=== PATIENT | female | born 1980 ===

== ENCOUNTER 2019-01-09 10:02 | Emergency (ER) | payer OTHER ==
--- NOTE | 2019-01-09 13:06 | Emergency Department Report ---
HPI - General Chief Complaint: Vaginal Bleeding Time Seen by Provider: 01/09/19 13:04 - HPI HPI: lmp 07/19/18 pos home preg test comes to er with vag bleeding and abd pain here with other children and her . ED Past Medical Hx - Past Medical History Previous Medical History?: No - Family History Family history: no significant - Social History Smoking Status: Never Smoker Substance Use Type: None - Medications Home Medications: Home Medications Medication Instructions Recorded Confirmed Last Taken Type Acetaminophen [Non-Aspirin Extra 1 - 2 tab PO Q8H PRN #30 tablet 01/09/19 Unknown Rx Strength] ED Review of Systems ROS: Stated complaint: 11 WEEKS /BLEEDING Other details as noted in HPI Comment: All other systems reviewed and negative Physical Exam - Physical Exam Vital Signs: Vital Signs 01/09/19 10:41 Temperature 98.4 F Pulse Rate 105 H Respiratory 18 Rate Blood Pressure 141/85 O2 Sat by Pulse 100 Oximetry Physical Exam: alert ambulatory s1s2 lungs cta obese no cva tenderness ED Course Vital Signs 01/09/19 10:41 Temperature 98.4 F Pulse Rate 105 H Respiratory 18 Rate Blood Pressure 141/85 O2 Sat by Pulse 100 Oximetry ED Medical Decision Making - Lab Data Result diagrams: 01/09/19 13:11 01/09/19 13:11 - Radiology Data Radiology results: report reviewed, image reviewed - Medical Decision Making Vital Signs 01/09/19 01/09/19 10:41 16:31 Temperature 98.4 F 97.6 F Pulse Rate 105 H 76 Respiratory 18 22 Rate Blood Pressure 141/85 Blood Pressure 120/71 [Right] O2 Sat by Pulse 100 99 Oximetry Lab Results 01/09/19 01/09/19 01/09/19 Range/Units 13:11 13:11 13:11 WBC 10.5 (4.5-11.0) K/mm3 RBC 3.97 (3.65-5.03) M/mm3 Hgb 12.3 (10.1-14.3) gm/dl Hct 35.6 (30.3-42.9) % MCV 90 (79-97) fl MCH 31 (28-32) pg MCHC 35 H (30-34) % RDW 13.3 (13.2-15.2) % Plt Count 298 (140-440) K/mm3 Lymph % (Auto) Not Reportable [place] % (Auto) Not Reportable Eos % (Auto) Not Reportable Baso % (Auto) Not Reportable Lymph # Not Reportable [place] # Not Reportable Eos # Not Reportable Baso # Not Reportable Add Manual Diff Complete Total Counted 100 Seg Neuts % (Manual) 77.0 H (40.0-70.0) % Band Neutrophils % 0 % Lymphocytes % (Manual) 19.0 (13.4-35.0) % Reactive Lymphs % (Man) 0 % Monocytes % (Manual) 4.0 (0.0-7.3) % Eosinophils % (Manual) 0 (0.0-4.3) % Basophils % (Manual) 0 (0.0-1.8) % Metamyelocytes % 0 % Myelocytes % 0 % Promyelocytes % 0 % Blast Cells % 0 % Nucleated RBC % Not Reportable Seg Neutrophils # Not Reportable Seg Neutrophils # Man 8.1 H (1.8-7.7) K/mm3 Band Neutrophils # 0.0 K/mm3 Lymphocytes # (Manual) 2.0 (1.2-5.4) K/mm3 Abs React Lymphs (Man) 0.0 K/mm3 Monocytes # (Manual) 0.4 (0.0-0.8) K/mm3 Eosinophils # (Manual) 0.0 (0.0-0.4) K/mm3 Basophils # (Manual) 0.0 (0.0-0.1) K/mm3 Metamyelocytes # 0.0 K/mm3 Myelocytes # 0.0 K/mm3 Promyelocytes # 0.0 K/mm3 Blast Cells # 0.0 K/mm3 WBC Morphology Not Reportable Hypersegmented Neuts Not Reportable Hyposegmented Neuts Not Reportable Hypogranular Neuts Not Reportable Smudge Cells Not Reportable Toxic Granulation Not Reportable Toxic Vacuolation Not Reportable Dohle Bodies Not Reportable Pelger-Huet Anomaly Not Reportable Sakshi Rods Not Reportable Platelet Estimate Consistent w auto Clumped Platelets Not Reportable Plt Clumps, EDTA Not Reportable Large Platelets Not Reportable Giant Platelets Not Reportable Platelet Satelliting Not Reportable Plt Morphology Comment Not Reportable RBC Morphology Not Reportable Dimorphic RBCs Not Reportable Polychromasia Not Reportable Hypochromasia Not Reportable Poikilocytosis Not Reportable Anisocytosis 1+ Microcytosis Not Reportable Macrocytosis Not Reportable Spherocytes Not Reportable Pappenheimer Bodies Not Reportable Sickle Cells Not Reportable Target Cells Not Reportable Tear Drop Cells Not Reportable Ovalocytes Not Reportable Helmet Cells Not Reportable [place] Bodies Not Reportable [place] Rings Not Reportable Sagrario Cells Not Reportable Bite Cells Not Reportable Crenated Cell Not Reportable Elliptocytes Not Reportable Acanthocytes (Spur) Not Reportable Rouleaux Not Reportable Hemoglobin C Crystals Not Reportable Schistocytes Not Reportable Malaria parasites Not Reportable Frandy Bodies Not Reportable Hem Pathologist Commnt No Sodium 140 (137-145) mmol/L Potassium 3.9 (3.6-5.0) mmol/L Chloride 100.9 (98-107) mmol/L Carbon Dioxide 25 (22-30) mmol/L Anion Gap 18 mmol/L BUN 7 (7-17) mg/dL Creatinine 0.4 L (0.7-1.2) mg/dL Estimated GFR > 60 ml/min BUN/Creatinine Ratio 18 % Glucose 142 H (65-100) mg/dL Calcium 9.6 (8.4-10.2) mg/dL HCG, Quant 1162 H (0-4) mIU/mL Blood Type Ord Rhogam Gestat Weeks WEEKS 01/09/19 Range/Units 13:11 WBC (4.5-11.0) K/mm3 RBC (3.65-5.03) M/mm3 Hgb (10.1-14.3) gm/dl Hct (30.3-42.9) % MCV (79-97) fl MCH (28-32) pg MCHC (30-34) % RDW (13.2-15.2) % Plt Count (140-440) K/mm3 Lymph % (Auto) [place] % (Auto) Eos % (Auto) Baso % (Auto) Lymph # [place] # Eos # Baso # Add Manual Diff Total Counted Seg Neuts % (Manual) (40.0-70.0) % Band Neutrophils % % Lymphocytes % (Manual) (13.4-35.0) % Reactive Lymphs % (Man) % Monocytes % (Manual) (0.0-7.3) % Eosinophils % (Manual) (0.0-4.3) % Basophils % (Manual) (0.0-1.8) % Metamyelocytes % % Myelocytes % % Promyelocytes % % Blast Cells % % Nucleated RBC % Seg Neutrophils # Seg Neutrophils # Man (1.8-7.7) K/mm3 Band Neutrophils # K/mm3 Lymphocytes # (Manual) (1.2-5.4) K/mm3 Abs React Lymphs (Man) K/mm3 Monocytes # (Manual) (0.0-0.8) K/mm3 Eosinophils # (Manual) (0.0-0.4) K/mm3 Basophils # (Manual) (0.0-0.1) K/mm3 Metamyelocytes # K/mm3 Myelocytes # K/mm3 Promyelocytes # K/mm3 Blast Cells # K/mm3 WBC Morphology Hypersegmented Neuts Hyposegmented Neuts Hypogranular Neuts Smudge Cells Toxic Granulation Toxic Vacuolation Dohle Bodies Pelger-Huet Anomaly Sakshi Rods Platelet Estimate Clumped Platelets Plt Clumps, EDTA Large Platelets Giant Platelets Platelet Satelliting Plt Morphology Comment RBC Morphology Dimorphic RBCs Polychromasia Hypochromasia Poikilocytosis Anisocytosis Microcytosis Macrocytosis Spherocytes Pappenheimer Bodies Sickle Cells Target Cells Tear Drop Cells Ovalocytes Helmet Cells [place] Bodies [place] Rings Sagrario Cells Bite Cells Crenated Cell Elliptocytes Acanthocytes (Spur) Rouleaux Hemoglobin C Crystals Schistocytes Malaria parasites Frandy Bodies Hem Pathologist Commnt Sodium (137-145) mmol/L Potassium (3.6-5.0) mmol/L Chloride (98-107) mmol/L Carbon Dioxide (22-30) mmol/L Anion Gap mmol/L BUN (7-17) mg/dL Creatinine (0.7-1.2) mg/dL Estimated GFR ml/min BUN/Creatinine Ratio % Glucose (65-100) mg/dL Calcium (8.4-10.2) mg/dL HCG, Quant (0-4) mIU/mL Blood Type O POSITIVE Ord Rhogam Gestat Weeks Rh pos WEEKS medicated with tylenol for pain labs noted rh pos us noted pt and updated on labs/us. She needs follow up imaging and labs at OBGYN office in 48 hours. Coach Driver has been used to convey discharge plan of care. Pt has been informed she may pass clots/tissue. - Differential Diagnosis ro ab Critical care attestation.: If time is entered above; I have spent that time in minutes in the direct care of this critically ill patient, excluding procedure time. ED Disposition Clinical Impression: , Threatened Disposition: DC-01 TO HOME OR SELFCARE Is pt being admited?: No Does the pt Need Aspirin: No Condition: Stable Instructions: Threatened Miscarriage (ED) Additional Instructions: diet as tolerated pelvic rest tylenol only for pain follow up with your obgyn or the one we gave you in 48 hours. see attached Prescriptions: Acetaminophen [Non-Aspirin Extra Strength] 1 - 2 tab PO Q8H PRN #30 tablet PRN Reason: Pain, Moderate (4-6) Referrals: HUMERA CASTRO MD [Staff Physician] - 3-5 Days Time of Disposition: 18:23 Print Language: ESTONIAN
[2019-01-09 13:35] LABS: Hematocrit 35.6 % (30.3-42.9); Hemoglobin 12.3 gm/dl (10.1-14.3); Mean Corpuscular HGB Conc 35 % (30-34); Mean Corpuscular Volume 90 fl (79-97); Platelet Count 298 K/mm3 (140-440); Red Blood Count 3.97 M/mm3 (3.65-5.03); Red Cell Distribution Width 13.3 % (13.2-15.2)
[2019-01-09 14:48] LABS: BUN/Creatinine Ratio 18; Blood Urea Nitrogen 7 mg/dL (7-17); Calcium 9.6 mg/dL (8.4-10.2); Hemolysis Index 0
[2019-01-09] MEDS ORDERED: TYLENOL PO ONE (15:45)
[2019-01-09 16:27] LABS: Basophils % (Manual) 0 % (0.0-1.8); Eosinophils % (Manual) 0 % (0.0-4.3); Total Cells Counted 100
[2019-01-09 16:28] LABS: Anisocytosis 1+; Platelet Estimate Consistent w Auto
[2019-01-09 16:32] VITALS: BP 120/71
--- NOTE | 2019-01-09 18:56 | Ultrasound Report ---
OB ultrasound. 01/09/2019. HISTORY: . Bleeding. FINDINGS: OB ultrasound was performed transabdominally and endovaginally. The uterus measures 9.7 x 5 .9 x 7.2 cm. The endometrial stripe measures 16.6 cm. A gestational sac is present dated 13 weeks 3 d ays. There is soft tissue within the sac presumably representing a pole. No heart tones a re documented. Right ovary measures 2.2 x 1.3 x 1.6 cm. Left ovary measures 3.4 x 2.1 x 3.1 cm. A complex cyst at th e left ovary measures 2.6 cm. IMPRESSION: 1. Gestational sac containing soft tissue presumably representing a pole. No heart tones can be documented. 2. Mild complex cyst left ovary. Signer Name: Tyler Fontenot MD Signed: 01/09/2019 6:52 PM Workstation Name: [id number]
== END 2019-01-09 19:00 | disposition home or self-care (01) ==
LOC: ED 10:02
DX: O20.0 Threatened abortion (principal); Z3A.11 11 weeks gestation of pregnancy
CPT/HCPCS: 36415; 76801; 76817; 80048; 84702; 85007; 85025; 86900; 86901

== ENCOUNTER 2019-01-10 08:59 | Emergency (ER) | payer SELFPAY ==
[2019-01-10 09:34] LABS: Basophils % (Auto) 0.3 % (0.0-1.8); Eosinophils # (Auto) 0.1 K/mm3 (0.0-0.4); Eosinophils % (Auto) 0.5 % (0.0-4.3); Hematocrit 29.7 % (30.3-42.9); Hemoglobin 10.8 gm/dl (10.1-14.3); Lymphocytes # (Auto) 2.7 K/mm3 (1.2-5.4); Lymphocytes % (Auto) 20.4 % (13.4-35.0); Mean Corpuscular HGB Conc 36 % (30-34); Mean Corpuscular Volume 89 fl (79-97); Monocytes # (Auto) 0.6 K/mm3 (0.0-0.8); Monocytes % (Auto) 4.7 % (0.0-7.3); Platelet Count 298 K/mm3 (140-440); Red Blood Count 3.35 M/mm3 (3.65-5.03)
[2019-01-10] MEDS ORDERED: ZOFRAN IV ONE (09:34)
[2019-01-10] MEDS ORDERED: MORPHINE IV ONE ×2 (09:34→11:03)
[2019-01-10] MEDS ORDERED: NACL 0.9% 1000 ML 1,000 ML IV ONE (09:35)
--- NOTE | 2019-01-10 09:39 | Emergency Department Report ---
ED Female HPI - General Chief complaint: Vaginal Bleeding Stated complaint: ABD PAIN/VAG BLEEDING Time Seen by Provider: 01/10/19 09:22 Source: family, EMS, branch operations specialist, old records reviewed Mode of arrival: Stretcher Limitations: Language Barrier - History of Present Illness Initial comments: 38-year-old female with a past medical history of diabetes, hypertension, and previous pregnancies visits to the hospital currently complaining of s uprapubic cramping and vaginal bleeding. LMP is unclear the patient estimates she is 11 to 15 weeks . She was seen here yesterday for same complaint. She had a hemoglobin of 12, blood type O+, and a beta Quant of 1162. Transvaginal ultrasound showed a gestational sac containing soft tissue presumably representing a pole without heart tones. Mild complex cyst in the left ovary. Patient states since being discharged bleeding has worsened. She is using a cloth to absorb vaginal bleeding and estimates greater than 1 pad per hour. She is also having 10/10 intermittent suprapubic cramping pain worse with palpation. This is the pt's fifth . She has 2 living children. She has a history of 1 early miscarriage, and upon delivery at 9 months gestation. 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 [facility] - Related Data Previous Rx's Medication Instructions Recorded Last Taken Type Acetaminophen [Non-Aspirin Extra 1 - 2 tab PO Q8H PRN #30 tablet 01/09/19 Unknown Rx Strength] Ibuprofen [Motrin] 800 mg PO Q8HR PRN #30 tablet 01/10/19 Unknown Rx Ondansetron [Zofran Odt] 4 mg PO Q8HR PRN #14 tab.rapdis 01/10/19 Unknown Rx oxyCODONE /ACETAMINOPHEN [Percocet 1 tab PO Q6HR PRN #15 tablet 01/10/19 Unknown Rx 5/325] Allergies Allergy/AdvReac Type Severity Reaction Status Date / Time No Known Allergies Allergy Unverified 01/09/19 16:36 ED Review of Systems ROS: Stated complaint: ABD PAIN/VAG BLEEDING Other details as noted in HPI Comment: All other systems reviewed and negative ED Past Medical Hx - Past Medical History Previous Medical History?: Yes Hx Hypertension: Yes Hx Diabetes: Yes - Surgical History Past Surgical History?: No - Social History Smoking Status: Never Smoker Substance Use Type: None - Medications Home Medications: Home Medications Medication Instructions Recorded Confirmed Last Taken Type Acetaminophen [Non-Aspirin Extra 1 - 2 tab PO Q8H PRN #30 tablet 01/09/19 Unknown Rx Strength] Ibuprofen [Motrin] 800 mg PO Q8HR PRN #30 tablet 01/10/19 Unknown Rx Ondansetron [Zofran Odt] 4 mg PO Q8HR PRN #14 tab.rapdis 01/10/19 Unknown Rx oxyCODONE /ACETAMINOPHEN [Percocet 1 tab PO Q6HR PRN #15 tablet 01/10/19 Unknown Rx 5/325] ED Physical Exam - General Limitations: Language Barrier - Other Other exam information: General: Moderate intermittent distress during cramping episode Head exam: Atraumatic, normocephalic Eyes exam: Normal appearance ENT: Moist mucous membrane, normal oropharynx Neck exam: Normal inspection, full range of motion, no meningismus nontender Respiratory exam: Clear to auscultation bilateral, no wheezes, rales, crackles Cardiovascular: Normal rate and rhythm, normal heart sounds Abdomen: Soft, nondistended, suprapubic tenderness, with normal bowel sounds, no rebound, or guarding Extremity: Full range of motion normal inspection no deformity Back: Normal Inspection, full range of motion, no tenderness Neurologic: Alert, oriented x3, cranial nerves intact, no motor or sensory deficit Psychiatric: normal affect, normal mood Skin: Warm, dry, intact ED Course Vital Signs 01/10/19 01/10/19 01/10/19 09:09 09:13 09:15 Temperature 98.5 F Pulse Rate 79 Respiratory 22 Rate Blood Pressure 155/73 155/73 119/69 Blood Pressure [Right] O2 Sat by Pulse 100 99 Oximetry 01/10/19 01/10/19 01/10/19 09:30 09:45 10:00 Temperature Pulse Rate Respiratory Rate Blood Pressure 121/72 121/67 122/77 Blood Pressure [Right] O2 Sat by Pulse 98 100 99 Oximetry 01/10/19 01/10/19 01/10/19 10:15 10:30 11:05 Temperature Pulse Rate Respiratory Rate Blood Pressure 119/74 113/68 111/63 Blood Pressure [Right] O2 Sat by Pulse 100 100 98 Oximetry 01/10/19 01/10/19 01/10/19 11:15 11:30 11:45 Temperature Pulse Rate Respiratory Rate Blood Pressure 105/60 118/67 105/52 Blood Pressure [Right] O2 Sat by Pulse 97 98 96 Oximetry 01/10/19 01/10/19 01/10/19 12:00 12:15 12:31 Temperature Pulse Rate Respiratory Rate Blood Pressure 98/49 91/52 117/60 Blood Pressure [Right] O2 Sat by Pulse 98 98 97 Oximetry 01/10/19 01/10/19 01/10/19 12:45 13:01 13:13 Temperature Pulse Rate 82 Respiratory 16 Rate Blood Pressure 111/68 120/61 Blood Pressure 120/61 [Right] O2 Sat by Pulse 99 99 98 Oximetry - Consultations Consultation #1: 01/10/19 12:24 Case discussed with Fabiola [place] 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 She was informed that bleeding has been decreased. Recommend Methergine IM ED Medical Decision Making - Lab Data Result diagrams: 01/10/19 09:23 Lab Results 01/10/19 01/10/19 Range/Units 09:23 09:23 WBC 13.0 H (4.5-11.0) K/mm3 RBC 3.35 L (3.65-5.03) M/mm3 Hgb 10.8 (10.1-14.3) gm/dl Hct 29.7 L (30.3-42.9) % MCV 89 (79-97) fl MCH 32 (28-32) pg MCHC 36 H (30-34) % RDW 13.0 L (13.2-15.2) % Plt Count 298 (140-440) K/mm3 Lymph % (Auto) 20.4 (13.4-35.0) % [place] % (Auto) 4.7 (0.0-7.3) % Eos % (Auto) 0.5 (0.0-4.3) % Baso % (Auto) 0.3 (0.0-1.8) % Lymph # 2.7 (1.2-5.4) K/mm3 [place] # 0.6 (0.0-0.8) K/mm3 Eos # 0.1 (0.0-0.4) K/mm3 Baso # 0.0 (0.0-0.1) K/mm3 Seg Neutrophils % 74.1 H (40.0-70.0) % Seg Neutrophils # 9.7 H (1.8-7.7) K/mm3 HCG, Quant 532.6 H (0-4) mIU/mL - Radiology Data Radiology results: report reviewed ULTRASOUND OBSTETRIC INDICATION / CLINICAL INFORMATION: increased bleeding and pain, decrease hcg. Clinical Gestational Age (GA): 15 weeks 5 days with reported LMP of 09/22/18 TECHNIQUE: Transabdominal. COMPARISON: Ultrasound dated 01/09/19 FINDINGS: GESTATIONAL SAC: Ill-defined gestational sac located in the lower uterine segment/cervix. Gestational sac measures 66 mm corresponding to 13 weeks 0 days gestational age. YOLK SAC: Not identified. EMBRYO/FETUS: Embryonic pole is not well identified. - [place]-Rump Length = 1.85 cm = 8 weeks, 3 day(s). - Heart Rate, beats per minute (if present) = no cardiac activity identified. There was no cardiac activity on the prior ultrasound from yesterday. ADNEXA: Small bilateral ovarian cysts. FREE FLUID: None. ADDITIONAL FINDINGS: None. IMPRESSION: 1. Embryonic demise with ill-defined gestational sac in the lower uterine segment/cervix likely representing spontaneous in progress. - Medical Decision Making Patient was observed for over 2 hours after Methergine. She did have some recurrent cramps and required additional pain medication. Bleeding did remain mild. Patient stable for discharge with pain medication and outpatient follow- up - Differential Diagnosis miscarriage, ectopic, threatened , anemia Critical Care Time: No Critical care attestation.: If time is entered above; I have spent that time in minutes in the direct care of this critically ill patient, excluding procedure time. ED Disposition Clinical Impression: Miscarriage Disposition: DC-01 TO HOME OR SELFCARE Is pt being admited?: No Does the pt Need Aspirin: No Condition: Stable Instructions: Spontaneous Miscarriage (ED) Additional Instructions: Take the medication as prescribed. Follow up with your doctor or the clinic/doc tor provided. Return if symptoms worsen as indicated by your discharge instructions [place] la medicacin segn lo prescrito. Marlon un seguimiento con dubois mdico o la clnica / mdico provisto. Regrese si los sntomas empeoran romaine lo indican heidi instrucciones de eli Prescriptions: Ibuprofen [Motrin] 800 mg PO Q8HR PRN #30 tablet PRN Reason: Pain, Moderate (4-6) oxyCODONE /ACETAMINOPHEN [Percocet 5/325] 1 tab PO Q6HR PRN #15 tablet PRN Reason: Pain Ondansetron [Zofran Odt] 4 mg PO Q8HR PRN #14 tab.rapdis PRN Reason: Nausea And Vomiting Referrals: [facility] 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
--- NOTE | 2019-01-10 11:41 | Ultrasound Report ---
ULTRASOUND OBSTETRIC INDICATION / CLINICAL INFORMATION: increased bleeding and pain, decrease hcg. Clinical Gestational Age (GA): 15 weeks 5 days with reported LMP of 09/22/18 TECHNIQUE: Transabdominal. COMPARISON: Ultrasound dated 01/09/19 FINDINGS: GESTATIONAL SAC: Ill-defined gestational sac located in the lower uterine segment/cervix. Gestational sac measures 66 mm corresponding to 13 weeks 0 days gestational age. YOLK SAC: Not identified. EMBRYO/FETUS: Embryonic pole is not well identified. - [place]-Rump Length = 1.85 cm = 8 weeks, 3 day(s). - Heart Rate, beats per minute (if present) = no cardiac activity identified. There was no card iac activity on the prior ultrasound from yesterday. ADNEXA: Small bilateral ovarian cysts. FREE FLUID: None. ADDITIONAL FINDINGS: None. IMPRESSION: 1. Embryonic demise with ill-defined gestational sac in the lower uterine segment/cervix likely repre senting spontaneous in progress. Signer Name: Ozzie Austin MD Signed: 01/10/2019 11:36 AM Workstation Name: [id number]
[2019-01-10] MEDS ORDERED: METHERGINE IM ONE (12:23)
[2019-01-10] MEDS ORDERED: TORADOL IV ONE (14:19)
[2019-01-10] MEDS ORDERED: DILAUDID IV ONE (14:19)
[2019-01-10 15:08] VITALS: BP 121/58
== END 2019-01-10 15:08 | disposition home or self-care (01) ==
LOC: ED 08:59
DX: O02.1 Missed abortion (principal); O16.2 Unspecified maternal hypertension, second trimester; E11.9 Type 2 diabetes mellitus without complications; Z79.1 Long term (current) use of non-steroidal anti-inflammatories (NSAID); Z79.899 Other long term (current) drug therapy; Z3A.15 15 weeks gestation of pregnancy
CPT/HCPCS: 36415; 76801; 84702; 85025; 96372; 96374; 96375; 96376; 99284; J1170; J1885; J2210; J2270; J2405; J7030

== ENCOUNTER 2020-08-11 12:34 | Outpatient (CLI) | payer OTHER, SELFPAY ==
[2020-08-11 12:52] VITALS: BP 114/56
[2020-08-11] MEDS ORDERED: LACTATED RINGERS 500 ML IV ONE (14:00)
--- NOTE | 2020-08-11 15:19 | Ultrasound Report ---
ULTRASOUND BIOPHYSICAL PROFILE ULTRASOUND OB LIMITED INDICATION: labor/SKYE AND POSITION TECHNIQUE: Transabdominal ultrasound imaging. COMPARISON: None FINDINGS: breathing movement = 2 Gross body movement = 2 tone = 2 Qualitative amniotic fluid volume = 2 Total biophysical score = 8/8 Amniotic fluid index is 22.9 cm. Presentation is cephalic. heart rate is 131 beats per minute. IMPRESSION: biophysical profile equals 8/8. Signer Name: Jude Calles Jr, MD Signed: 08/11/2020 3:15 PM Workstation Name: [id number]
== END 2020-08-11 16:51 | disposition home or self-care (01) ==
LOC: TRG 12:34 → APU 12:36 → TRG 16:51
PROVIDERS: ATTEND Obstetrics & Gynecology
DX: O09.892 Supervision of other high risk pregnancies, second trimester (principal); Z3A.25 25 weeks gestation of pregnancy
CPT/HCPCS: 76815; 76819; 82962

== ENCOUNTER 2020-09-08 17:36 | Outpatient (CLI) | payer OTHER ==
[2020-09-08 18:28] VITALS: BP 114/57
[2020-09-08] MEDS ORDERED: LACTATED RINGERS 500 ML IV ONE (19:16)
[2020-09-08] MEDS ORDERED: NIFEdipine*For Tocolysis only* 10 MG CAPSULE PO ONE (19:18)
== END 2020-09-08 21:40 | disposition home or self-care (01) ==
LOC: TRG 17:36 → APU 17:37 → TRG 21:40
PROVIDERS: ATTEND Obstetrics & Gynecology
DX: O62.9 Abnormality of forces of labor, unspecified (principal); O09.523 Supervision of elderly multigravida, third trimester; Z3A.29 29 weeks gestation of pregnancy
CPT/HCPCS: 36415; 59025; 82962; 84112; J7120; 96360

== ENCOUNTER 2020-09-22 14:49 | Outpatient (CLI) | payer OTHER ==
[2020-09-22 15:33] LABS: Bacteria,Urine 1+ /HPF (Negative); Bilirubin,Urine NEG (Negative); Blood,Urine NEG (Negative); Color,Urine Straw (Yellow); Protein,Urine <15 mg/dL mg/dL (Negative); Urobilinogen,Urine < 2.0 mg/dL (<2.0); WBC,Urine < 1.0 /HPF (0.0-6.0)
[2020-09-22] MEDS: LACTATED RINGERS 1,000 ML IV SCH ×2 (16:02→16:57)
[2020-09-22] MEDS: TERBUTALINE 1 MG/1 ML INJ SUB-Q SCH ×3 (17:30→18:51)
[2020-09-22 19:22] VITALS: BP 122/58
== END 2020-09-22 19:40 | disposition home or self-care (01) ==
LOC: TRG 14:49 → APU 14:51 → TRG 19:40
PROVIDERS: ATTEND Obstetrics & Gynecology
DX: O60.03 Preterm labor without delivery, third trimester (principal); O09.523 Supervision of elderly multigravida, third trimester; Z3A.31 31 weeks gestation of pregnancy
CPT/HCPCS: 36415; 59025; 81001; 82731; 84112; 96360; 96361; 96372; J3105; J7120

== ENCOUNTER 2020-10-13 12:01 | Outpatient (CLI) | payer OTHER ==
--- NOTE | 2020-10-13 13:27 | Ultrasound Report ---
US OB BPP wo non-stress, US OB limited INDICATION / CLINICAL INFORMATION: WELL BEING. TECHNIQUE: Transabdominal. COMPARISON: 08/11/2020 FINDINGS: Single viable intrauterine in cephalic presentation. HEART RATE (beats per minute): 145-152 AMNIOTIC FLUID INDEX (cm) = 20.5 (normal = 7-24 cm) BREATHING MOVEMENT = 2 GROSS BODY MOVEMENT = 2 TONE = 2 QUALITATIVE AMNIOTIC FLUID VOLUME = 2 TOTAL BIOPHYSICAL SCORE = 8/8 ADDITIONAL FINDINGS: None. IMPRESSION: Single viable intrauterine . biophysical profile equals 8/8. Signer Name: John Johnson MD Signed: 10/13/2020 1:22 PM Workstation Name: [id number]
[2020-10-13 13:29] VITALS: BP 103/49
== END 2020-10-13 14:09 | disposition home or self-care (01) ==
LOC: APU 12:01 → TRG 12:01 → APU 12:02 → TRG 14:09
DX: O13.3 Gestational [pregnancy-induced] hypertension without significant proteinuria, third trimester (principal); Z3A.34 34 weeks gestation of pregnancy
CPT/HCPCS: 76815; 76819

== ENCOUNTER 2020-10-20 15:43 | Outpatient (CLI) | payer SELFPAY ==
[2020-10-20 16:40] VITALS: BP 119/64
[2020-10-20] MEDS ORDERED: LACTATED RINGERS 1,000 ML IV SCH (16:45)
--- NOTE | 2020-10-20 18:13 | Ultrasound Report ---
ULTRASOUND OBSTETRIC LIMITED ULTRASOUND BIOPHYSICAL PROFILE INDICATION / CLINICAL INFORMATION: wellbeing. Clinical Gestational Age (GA): 35.5 weeks.days COMPARISON: 10/13/2020 FINDINGS: BREATHING MOVEMENT = 2 GROSS BODY MOVEMENT = 2 TONE = 2 QUALITATIVE AMNIOTIC FLUID VOLUME = 2 TOTAL BIOPHYSICAL SCORE = 8/8 HEART RATE (beats per minute): 157 ADDITIONAL FINDINGS: None. IMPRESSION: 1. Single viable intrauterine . Biophysical Score = 8/8 Signer Name: Herve Saha MD Signed: 10/20/2020 6:09 PM Workstation Name: [id number]
== END 2020-10-20 18:29 | disposition home or self-care (01) ==
LOC: TRG 15:43 → APU 15:44 → TRG 18:29
DX: O09.893 Supervision of other high risk pregnancies, third trimester (principal); Z3A.35 35 weeks gestation of pregnancy
CPT/HCPCS: 59025; 76819

== ENCOUNTER 2020-10-23 04:55 | Inpatient (IN) | payer MEDICAID, OTHER ==
[2020-10-23] MEDS ORDERED: BICITRA ORAL LIQD 30ML PO ONE (05:01)
[2020-10-23] MEDS ORDERED: FAMOTIDINE 20 MG/2 ML INJ IV ONE (05:01)
[2020-10-23] MEDS ORDERED: METOCLOPRAMIDE 10 MG/2 ML INJ IV ONE (05:01)
[2020-10-23] MEDS ORDERED: OXYTOCIN 10 UNIT/1 ML INJ IM PRN (05:03)
[2020-10-23] MEDS ORDERED: CARBOPROST TROMETHAMINE 250 MCG/1 ML INJ IM PRN (05:03)
[2020-10-23] MEDS ORDERED: LOPERAMIDE 2 MG CAP PO PRN (05:03)
[2020-10-23] MEDS ORDERED: TERBUTALINE 1 MG/1 ML INJ SUB-Q PRN (05:03)
[2020-10-23] MEDS ORDERED: METHYLERGONOVINE MALEATE 0.2 MG/ML VIAL IM PRN (05:03)
[2020-10-23] MEDS ORDERED: LACTATED RINGERS 1,000 ML IV SCH (05:15)
[2020-10-23 05:41] LABS: Basophils # (Auto) 0.1 K/mm3 (0.0-0.1); Basophils % (Auto) 0.7 % (0.0-1.8); Eosinophils # (Auto) 0.1 K/mm3 (0.0-0.4); Eosinophils % (Auto) 0.5 % (0.0-4.3); Hematocrit 33.9 % (30.3-42.9); Hemoglobin 11.5 gm/dl (10.1-14.3); Lymphocytes # (Auto) 2.6 K/mm3 (1.2-5.4); Mean Corpuscular HGB Conc 34 % (30-34); Mean Corpuscular Volume 87 fl (79-97); Monocytes # (Auto) 0.5 K/mm3 (0.0-0.8); Monocytes % (Auto) 4.6 % (0.0-7.3); Platelet Count 294 K/mm3 (140-440); Red Cell Distribution Width 15.7 % (13.2-15.2)
[2020-10-23] MEDS ORDERED: ceFAZolin/STERILE WATER 2 GM/20 ML SYRINGE IV NR (06:00)
[2020-10-23] MEDS ORDERED: OXYTOCIN DRIP 30 UNITS/500 ML BAG IV SCH ×2 (06:00→10:00)
[2020-10-23] MEDS ORDERED: ONDANSETRON 4 MG/2 ML INJ ONE (07:02)
[2020-10-23] MEDS ORDERED: dexAMETHasone 20 MG/5 ML VIAL ONE (07:02)
[2020-10-23] MEDS ORDERED: PHENYLEPHRINE 10 MG/1 ML INJ SDV ONE (07:02)
[2020-10-23] MEDS ORDERED: BUPIVACAINE/PF (0.5%) 5 MG/1 ML 30 ML VIAL INFILTRATI ONE (07:02)
[2020-10-23] MEDS ORDERED: SODIUM CHLORIDE 0.9% 100 ML ONE (07:02)
[2020-10-23] MEDS ORDERED: KETOROLAC 30 MG/1 ML INJ ONE (07:04)
--- NOTE | 2020-10-23 07:07 | Anesthesia Consultation ---
Anesthesia Consult and Med Hx Date of service: 10/23/20 - Airway Anesthetic Teeth Evaluation: Good ROM Head & Neck: Adequate Mental/Hyoid Distance: Adequate Mallampati Class: Class II Intubation Access Assessment: Probably Good - Pulmonary Exam CTA: Yes - Cardiac Exam Cardiac Exam: RRR - Pre-Operative Health Status ASA Pre-Surgery Classification: ASA3 Proposed Anesthetic Plan: Spinal - Pulmonary Hx Asthma: No - Cardiovascular System Hx Hypertension: No - Central Nervous System Hx Seizures: No Hx Psychiatric Problems: No - Endocrine Hx Renal Disease: No Hx Non-Insulin Dependent Diabetes: Yes Hx Hypothyroidism: No Hx Hyperthyroidism: No - Hematic Hx Anemia: No Hx Sickle Cell Disease: No - Other Systems Hx Alcohol Use: No Hx Obesity: Yes
--- NOTE | 2020-10-23 07:07 | Anesthesia Day of Surgery ---
Anesthesia Day of Surgery - Day of Surgery Patient Examined: Yes Patient H&P Reviewed: Yes Patient is NPO: Yes
[2020-10-23] MEDS ORDERED: ceFAZolin/STERILE WATER 2 GM/20 ML SYRINGE IV ONE (07:30)
--- NOTE | 2020-10-23 07:34 | Procedure Note ---
OB Delivery Note - Delivery Date of Delivery: 10/23/20 Surgeon: SUZY CERON Estimated blood loss: other (700ml) - Section Preop diagnosis: desires sterilization section procedure: repeat low transverse, bilateral tubal ligation Disposition: PACU Complications: none Narrative: Preop diagnosis: IUP at 36.1 weeks,previous sectionx2, uncontrolled IDDM, AMA, hx of still born at 36 weeks(2019) Postop diagnosis: Same,delivered Procedure: Repeat low transverse section via Pfannenstiel incision Surgeon: Dr. Suzy Ceron Anesthesia spinal Complications none EBL 700ml IV fluids 800mL Urine output 100mL, clear Drains [place] to gravity Findings: Viable male with weight 2772gms and 8/9, normal uterus tubes and ovaries bilaterally Procedure: Patient was consented in taken to the operating room where she received excellent spinal anesthesia. She was then placed in the dorsal supine position with a leftward tilt. The abdomen was prepped and draped in a sterile fashion, and a timeout was verified. Adequate anesthesia was confirmed prior to the skin incision. A Pfannenstiel skin incision was made with a scalpel taken down to the underlying structures and the fascia was incised in the midline. The incision was extended laterally with curved Mariano scissors, the superior and inferior aspects of the fascial incisions were grasped with Alex clamps and the rectus muscles dissected sharply. The abdomen was entered bluntly in the midline carried down inferiorly with good visualization of the bladder. The vesicouterine peritoneum was tented with [place] forceps and incised in the midline with Metzenbaum scissors and the vesicouterine peritoneum taken down sharply. Vanita was inserted and the uterine incision was made sharply with a scalpel. The inferior and superior aspect of the uterine incisions were extended bluntly, the baby's head was delivered atraumatically. The remainder of the delivery was atraumatic, no nuchal cord noted at delivery. Cord blood obtained. The cord was clamped and cut and baby handed to waiting NICU team. An intact placenta with three-vessel cord delivered manually. The uterus was then cleared of all clots and debris and the uterine incision was closed with 2 layers of 0 chromic with excellent hemostasis. The fallopian tubes were suture- ligated bilaterally in a modified [place] fashion. A second look at the uterine incision assured hemostasis. The peritoneum was closed with 3-0 Vicryl, the rectus muscles approximated with 3-0 Vicryl, and the fascia closed with 0 Vicryl in the usual fashion. The subcuticular structures were closed with interrupted sutures of 3-0 Vicryl and the skin closed with 3-0 Monocryl. A pressure dressing was applied. All sponge needle and instrument counts were correct x2. There were no complications. Mom and baby stable to . EBL 700 mL Delia Ceron MD
--- NOTE | 2020-10-23 07:34 | History and Physical Report ---
History of Present Illness Date of examination: 10/23/20 Date of admission: 10/23/20 04:55 Chief complaint: Elective repeat section Multiparity desires permanent surgical sterilization History of present illness: 39-year-old -2-1-2 at 36-1/7 weeks by first trimester ultrasound, presents for elective repeat section and bilateral tubal ligation. At bedside she has no obstetrical complaints and has been given informed consent. care [facility] : Total number of visits equals 16 Uncontrolled IDDM AMA History of stillbirth at 36 weeks in 2019 Labs: Hb 11.7 Rubella immune VDRL negative Urine culture negative HBsAg negative HIV neck Gonorrhea chlamydia negative MSAFP negative Past History Past Medical History: diabetes - Obstetrical History : 5 Medications and Allergies Allergies Allergy/AdvReac Type Severity Reaction Status Date / Time No Known Allergies Allergy Verified 09/22/20 15:01 Home Medications Medication Instructions Recorded Confirmed Last Taken Type No Known Home Medications [No 08/11/20 08/11/20 Unknown History Reported Home Medications] Active Meds: Active Medications Carboprost Tromethamine (Carboprost Tromethamine 250 Mcg/1 Ml Inj) 250 mcg IM ONCE PRN PRN Reason: Uterine Bleeding Cefazolin Sodium (Cefazolin/Sterile Water 2 Gm/20 Ml Syringe) 2 gm IV PREOP NR Stop: 10/23/20 23:59 Ephedrine Sulfate (Ephedrine Sulfate 50 Mg/1 Ml Inj) 10 mg IV Q2M PRN PRN Reason: Hypotension Lactated Ringer's (Lactated Ringers) 1,000 mls @ 2,250 mls/hr IV PREOP MARCELINO Stop: 10/24/20 05:42 Oxytocin/Sodium Chloride (Pitocin/Ns 30 Unit/500ml) 30 units in 500 mls @ 0 mls/hr IV TITR MARCELINO; Protocol Loperamide HCl (Loperamide 2 Mg Cap) 2 mg PO ONCE PRN PRN Reason: give with Hemabate Methylergonovine Maleate (Methylergonovine Maleate 0.2 Mg/Ml Vial) 0.2 mg IM ONCE PRN PRN Reason: Uterine Bleeding Oxytocin (Oxytocin 10 Unit/1 Ml Inj) 10 unit IM ONCE PRN PRN Reason: Uterine Bleeding Terbutaline Sulfate (Terbutaline 1 Mg/1 Ml Inj) 0.25 mg SUB-Q ONCE PRN PRN Reason: Hyperstimulation/Hypertonicity - Vital Signs Vital signs: Vital Signs Temp Pulse Resp BP 98.8 F 82 12 121/62 10/23/20 05:14 10/23/20 05:14 10/23/20 05:14 10/23/20 05:14 Temp Pulse Resp BP Pulse Ox 98.8 F 82 12 121/62 10/23/20 05:14 10/23/20 05:23 10/23/20 05:14 10/23/20 05:23 Results Result Diagrams: 10/23/20 05:25 Abnormal lab results 10/23/20 10/23/20 10/23/20 Range/Units 05:25 05:25 05:25 WBC 11.4 H (4.5-11.0) K/mm3 RDW 15.7 H (13.2-15.2) % Seg Neutrophils % 71.2 H (40.0-70.0) % Seg Neutrophils # 8.1 H (1.8-7.7) K/mm3 Fasting Glucose 121 H (65-100) mg/dL Hemoglobin A1c 6.5 H (4-6) % All other labs normal.
--- NOTE | 2020-10-23 07:43 | Progress Note ---
Spinal Anesthesia Block - Spinal Anesthesia Block Start Time: 07:35 Stop Time: 07:39 Performed by:: ARNOL MCCULLOUGH Procedure: Sitting, sterile chlorahexadine 0.5% prep/drape, 1% lidocaine skin local, 25G spinal needle + introducer at L3-4, + CSF, - Heme, [1.9 ml 0.5% bupivacaine + 10 mcg dexmedetomidine] injected, drape removed, patient positioned supine with left uterine displacement, and spinal level verified to be adequate prior to surgery. Arnol VIERA
[2020-10-23] MEDS ORDERED: LANOLIN/ZINC/DIMETHICONE (LANSINOH) 7 GM TP PRN (09:06)
[2020-10-23] MEDS ORDERED: MORPHINE 4 MG/1 ML INJ IV PRN (09:06)
[2020-10-23] MEDS ORDERED: NALOXONE 0.4 MG/1 ML INJ IV PRN (09:06)
[2020-10-23] MEDS ORDERED: HYDROcodone/ACETAMINOPHEN 5-325 MG TAB PO PRN (09:06)
[2020-10-23] MEDS ORDERED: IBUPROFEN 600 MG TAB PO PRN (09:06)
[2020-10-23] MEDS ORDERED: ONDANSETRON 4 MG/2 ML INJ IV PRN (09:06)
[2020-10-23] MEDS ORDERED: WITCH HAZEL/ GLYCERIN PAD TP PRN (09:06)
[2020-10-23] MEDS ORDERED: MORPHINE 2 MG/1 ML INJ IV PRN (09:06)
[2020-10-23] MEDS: ePHEDrine SULFATE 50 MG/1 ML INJ IV PRN ×3 (09:15→09:50)
--- NOTE | 2020-10-23 09:33 | Progress Note ---
Regional Anesthesia Block - Regional Anesthesia Block Start Time: :10 Stop Time: :15 Performed By:: ARNOL MCCULLOUGH Procedure: U/S guided bilateral tap block performed for post-operative pain requested by Dr. Jackson. H&P & labs reviewed. Procedure explained, questions answered, consent obtained. Patient in the supine position with ekg, blood pressure cuff and pulse ox on and working in PACU. Timeout performed immediately before start of procedure. Probe placed in the mid-axillary line and the external oblique, internal oblique, and transverse abdominus muscles identified. Skin was cleansed with chlorahexadine 0.5% and allowed to dry. A 4" 20 G Benitez echogenic needle was advanced in plane until the tip was in the fascial plane between the internal oblique and the transverse abdominus. After negative aspiration 35 ml/side of [30 ml 0.5% Bupivacaine], [10 mg dexamethasone], and [40 ml sterile saline] was injected in 5 ml increments with negative aspiration in between. Patient tolerated procedure well. Arnol VIERA
[2020-10-23] MEDS ORDERED: INSULIN REGULAR, HUMAN 100 UNITS/1 ML SUB-Q SCH (17:00)
[2020-10-23] MEDS: KETOROLAC 30 MG/1 ML INJ IV PRN (17:20)
[2020-10-23 20:48] LABS: Hemoglobin 9.9 gm/dl (10.1-14.3)
[2020-10-23] MEDS: INSULIN NPH/REGULAR 70/30 INJ SUB-Q SCH (22:21)
[2020-10-24] MEDS: KETOROLAC 30 MG/1 ML INJ IV PRN (03:06)
--- NOTE | 2020-10-24 05:26 | Progress Note ---
Assessment and Plan A: /postop day 1 S/P repeat LTCS with BTL. Anemia. P: Advised patient to ambulate. Iron supplementation. Mylicon for gas pain. Subjective - Subjective Date of service: 10/24/20 Principal diagnosis: /postop day 1 Interval history: Reports gas pain. Has not been ambulating much. Patient reports: appetite normal, voiding normally, flatus, no dizzy ambulation, no bowel movement, no nauseated Objective - Vital Signs Latest vital signs: Vital Signs Temp Pulse Resp BP BP Pulse Ox 10/24/20 02:19 98.0 F 78 20 105/59 98 10/23/20 21:09 98.7 F 79 22 113/51 97 10/23/20 16:00 97.6 F 91 H 19 123/67 98 10/23/20 11:00 97.4 F L 79 20 113/68 97 10/23/20 10:05 70 25 H 100/50 97 10/23/20 09:50 79 21 84/42 97 10/23/20 09:35 78 19 97/61 95 10/23/20 09:20 75 20 87/37 96 10/23/20 09:15 85 24 76/36 96 10/23/20 09:12 140 H 98 10/23/20 09:10 76 19 99/47 96 10/23/20 09:05 75 23 84/31 95 10/23/20 09:02 97.8 F 76 24 66/20 96 10/23/20 05:23 82 121/62 Intake and Output 10/23/20 10/23/20 10/24/20 15:59 23:59 07:59 Intake Total 2700 880 Output Total 1165 1700 Balance 1535 -820 Intake: IV 2300 Oral 300 300 Intake, Free Water 100 580 Output: Urine 1165 1700 Indwelling Catheter 600 1700 Uretheral ([place]) 335 Other: Total, Intake Amount 300 300 Total, Output Amount 600 1400 # Voids Indwelling Catheter 1 2 - Exam Cardiovascular: Present: Regular rate Lungs: Present: Clear to auscultation Abdomen: Present: normal appearance, soft, normal bowel sounds. Absent: distention, tenderness, guarding, rigidity Uterus: Present: normal, firm, fundal height below umbilicus. Absent: bogginess, tenderness Extremities: Present: normal. Absent: tenderness, edema Incision: Present: dry, dressed - Labs Labs: Abnormal lab results 10/23/20 10/23/20 10/23/20 Range/Units 05:25 05:25 05:25 WBC 11.4 H (4.5-11.0) K/mm3 Hgb (10.1-14.3) gm/dl Hct (30.3-42.9) % RDW 15.7 H (13.2-15.2) % Seg Neutrophils % 71.2 H (40.0-70.0) % Seg Neutrophils # 8.1 H (1.8-7.7) K/mm3 POC Glucose (70-105) mg/dL Fasting Glucose 121 H (65-100) mg/dL Hemoglobin A1c 6.5 H (4-6) % 10/23/20 10/23/20 10/23/20 Range/Units 17:28 20:28 22:09 WBC (4.5-11.0) K/mm3 Hgb 9.9 L (10.1-14.3) gm/dl Hct 30.0 L (30.3-42.9) % RDW (13.2-15.2) % Seg Neutrophils % (40.0-70.0) % Seg Neutrophils # (1.8-7.7) K/mm3 POC Glucose 183 H 143 H (70-105) mg/dL Fasting Glucose (65-100) mg/dL Hemoglobin A1c (4-6) %
[2020-10-24] MEDS: oxyCODONE /ACETAMINOPHEN 5-325MG TAB PO PRN ×3 (06:06→21:55)
[2020-10-24] MEDS: SIMETHICONE 80 MG CHEW TAB PO PRN ×2 (06:07→13:50)
[2020-10-24] MEDS ORDERED: INSULIN REGULAR, HUMAN 100 UNITS/1 ML SUB-Q SCH (10:00)
[2020-10-24] MEDS: MAGNESIUM HYDROXIDE (MOM) ORAL LIQD UDC PO PRN (10:28)
[2020-10-24] MEDS: IBUPROFEN 800 MG TAB PO PRN ×2 (10:28→18:05)
--- NOTE | 2020-10-24 10:34 | Post Anesthesia Evaluation ---
- Post Anesthesia Evaluation Patient Participated: Yes Airway Patent: Yes Stable Respiratory Function: Yes Nausea/Vomiting: No Temp > 96.8F: Yes Pain Manageable: Yes Adequeate Hydration: Yes Anesthesia Complications: No Block Receding Appropriately: Yes
[2020-10-24] MEDS: INSULIN NPH, HUMAN 100 UNIT/1 ML SUB-Q SCH (11:30)
[2020-10-24] MEDS: INSULIN REGULAR, HUMAN 100 UNITS/1 ML SUB-Q SCH (18:20)
[2020-10-24] MEDS: FERROUS SULFATE 325 MG TAB PO SCH (21:56)
[2020-10-24] MEDS: INSULIN NPH/REGULAR 70/30 INJ SUB-Q SCH (21:57)
[2020-10-25] MEDS: IBUPROFEN 800 MG TAB PO PRN ×4 (00:39→20:25)
[2020-10-25] MEDS: INSULIN NPH, HUMAN 100 UNIT/1 ML SUB-Q SCH (08:20)
[2020-10-25] MEDS: SIMETHICONE 80 MG CHEW TAB PO PRN ×2 (08:48→20:30)
[2020-10-25] MEDS: INSULIN REGULAR, HUMAN 100 UNITS/1 ML SUB-Q SCH ×2 (08:49→18:21)
[2020-10-25] MEDS: oxyCODONE /ACETAMINOPHEN 5-325MG TAB PO PRN ×2 (10:23→18:20)
--- NOTE | 2020-10-25 12:36 | Progress Note ---
Assessment and Plan A: /postop day 2 S/P repeat LTCS with BTL. Anemia. IDDM. P: Continue ambulation. Continue iron supplementation. Anticipate discharge home tomorrow if patient continues to do well. Subjective - Subjective Date of service: 10/25/20 Principal diagnosis: /postop day 2 Interval history: /postop day 2 S/P repeat LTCS with BTL. Anemia. IDDM. Patient reports: appetite normal, voiding normally, pain well controlled, flatus, ambulating normally, no dizzy ambulation, no nauseated : doing well Objective - Vital Signs Latest vital signs: Vital Signs Temp Pulse Resp BP BP Pulse Ox 10/25/20 10:23 18 10/25/20 08:48 18 10/25/20 00:39 18 10/24/20 23:28 98.1 F 77 20 116/56 95 10/24/20 21:55 18 10/24/20 18:05 18 10/24/20 16:57 97.7 F 70 18 116/53 94 10/24/20 13:50 18 Intake and Output 10/24/20 10/25/20 10/25/20 23:59 07:59 15:59 Intake Total 560 240 Balance 560 240 Intake: Oral 200 240 Intake, Free Water 360 Other: Total, Intake Amount 200 240 # Voids Void 1 1 - Exam Cardiovascular: Present: Regular rate Lungs: Present: Clear to auscultation Abdomen: Present: normal appearance, soft, normal bowel sounds. Absent: distention, tenderness, guarding, rigidity Uterus: Present: normal, firm, fundal height below umbilicus. Absent: bogginess, tenderness Extremities: Present: normal. Absent: tenderness Incision: Present: normal, dry, intact - Labs Labs: Abnormal lab results 10/24/20 Range/Units 18:19 POC Glucose 126 H (70-105) mg/dL
[2020-10-25] MEDS: MAGNESIUM HYDROXIDE (MOM) ORAL LIQD UDC PO PRN (14:14)
[2020-10-25] MEDS: FERROUS SULFATE 325 MG TAB PO SCH (20:25)
[2020-10-25] MEDS: INSULIN NPH/REGULAR 70/30 INJ SUB-Q SCH (23:10)
[2020-10-26] MEDS: IBUPROFEN 800 MG TAB PO PRN (06:20)
--- NOTE | 2020-10-26 07:00 | Progress Note ---
Assessment and Plan A: /postop day 3 S/P repeat LTCS with BTL. Anemia. IDDM. P: Discharge patient home today. Discussed with patient /postop discharge instructions and warning signs. Care of incision and activity restrictions discussed with patient. Advised patient to avoid IC and lifting. Advised patient to continue taking her vitamins, iron supplements, and insulin at home. Advised patient to follow up at [facility] in 1 week. Patient also to follow up with her PCP re: her diabetes. Patient voiced understanding of all instructions. Subjective - Subjective Date of service: 10/26/20 Principal diagnosis: /postop day 3 Interval history: /postop day 3 S/P repeat LTCS with BTL. Anemia. IDDM. Patient reports: appetite normal, voiding normally, pain well controlled, flatus, ambulating normally, no dizzy ambulation, no nauseated Objective - Vital Signs Latest vital signs: Vital Signs Temp Pulse Resp BP BP Pulse Ox 10/26/20 06:20 18 10/26/20 00:36 98.6 F 70 16 103/66 10/25/20 21:25 18 10/25/20 20:25 18 10/25/20 19:20 18 10/25/20 18:20 12 10/25/20 15:52 98 F 72 18 110/62 10/25/20 14:14 18 10/25/20 10:23 18 10/25/20 08:48 18 10/25/20 08:35 98.2 F 76 18 114/52 97 Intake and Output 10/25/20 10/25/20 10/26/20 15:59 23:59 07:59 Intake Total 120 120 Balance 120 120 Intake: Intake, Free Water 120 120 Other: # Voids Void 1 - Exam Cardiovascular: Present: Regular rate Lungs: Present: Clear to auscultation Abdomen: Present: normal appearance, soft, normal bowel sounds. Absent: distention, tenderness, guarding, rigidity Uterus: Present: normal, firm, fundal height below umbilicus. Absent: bogg iness, tenderness Extremities: Present: normal. Absent: tenderness Incision: Present: normal, dry, intact - Labs Labs: Abnormal lab results 10/25/20 10/25/20 10/25/20 Range/Units 08:33 17:56 22:59 POC Glucose 109 H 159 H 141 H (70-105) mg/dL
--- NOTE | 2020-10-26 07:07 | Discharge Summary ---
Providers - Providers Date of Admission: 10/23/20 04:55 Date of discharge: 10/26/20 Attending physician: KEVIN EM MD Primary care physician: KEVIN EM MD Hospitalization Reason for admission: section Delivery: Procedure: bilateral tubal ligation, repeat low transverse Incision: normal, dry, intact Other procedures: tubal ligation complications: none Discharge diagnosis: delivery [place] baby: male Pertinent studies: Labs Hospital course: Stable hospital course Condition at discharge: Good Disposition: DC-01 TO HOME OR SELFCARE - Discharge Diagnoses (1) delivery Status: Acute (2) Anemia Status: Acute Plan - Discharge Medications Prescriptions: Ibuprofen [Motrin] 600 mg PO Q8H PRN #60 tablet PRN Reason: Pain oxyCODONE /ACETAMINOPHEN [Percocet 5/325] 1 tab PO Q6HR PRN #20 tablet PRN Reason: Pain - Provider Discharge Summary Activity: routine, no sex for 6 weeks, no heavy lifting 4 weeks, no strenuous exercise Diet: routine Instructions: routine Additional instructions: Continue taking your vitamin and iron supplement at home. Follow up at [facility] in 1 week. See your primary care physician right away re: your diabetes. Call your doctor immediately for: * Fever > 100.5 * Heavy vaginal bleeding ( >1 pad per hour) * Severe persistent headache * Shortness of breath * Reddened, hot, painful area to leg or breast * Drainage or odor from incision. * Keep incision clean and dry at all times and follow doctor's instructions regarding bathing/showering - Follow up plan Follow up: KEVIN EM MD [Primary Care Provider] - 7 Days Forms: [facility] Discharge Summary
[2020-10-26] MEDS: INSULIN REGULAR, HUMAN 100 UNITS/1 ML SUB-Q SCH (09:04)
[2020-10-26] MEDS: INSULIN NPH, HUMAN 100 UNIT/1 ML SUB-Q SCH (09:04)
[2020-10-26 10:14] VITALS: BP 128/56
[2020-10-26] MEDS: oxyCODONE /ACETAMINOPHEN 5-325MG TAB PO PRN (10:22)
== END 2020-10-26 11:15 | disposition home or self-care (01) | DRG 783 ==
LOC: APU 04:55 → OB 10:38
PROC: 10D00Z1 Extraction of Products of Conception, Low, Open Approach (ICD-10-PCS; principal; 2020-10-23)
PROC: 0UB70ZZ Excision of Bilateral Fallopian Tubes, Open Approach (ICD-10-PCS; 2020-10-23)
DX: O34.211 Maternal care for low transverse scar from previous cesarean delivery (principal); O24.32 Unspecified pre-existing diabetes mellitus in childbirth; Z20.822 Contact with and (suspected) exposure to COVID-19; O99.03 Anemia complicating the puerperium; O99.214 Obesity complicating childbirth; E66.9 Obesity, unspecified; E11.9 Type 2 diabetes mellitus without complications; Z3A.36 36 weeks gestation of pregnancy; Z37.0 Single live birth; O09.513 Supervision of elderly primigravida, third trimester; Z79.4 Long term (current) use of insulin
CPT/HCPCS: 36415; 82947; 82962; 83036; 85014; 85018; 85025; 86592; 86850; 86900; 86901; 88302; 88307; G0378; J0690; J1100; J1815; J1885; J2370; J2405; J2765; J3490; J7120; U0003